=== PATIENT | male | born 1980 | race Caucasian/White ===

== ENCOUNTER 2017-12-15 09:52 | Day surgery (SDC) | payer OTHER ==
[~2017-12-15 09:52] MED LIST: Lidocaine 1% PF 2 ML SDV INJECT SCH
[2017-12-15] MEDS: Polymyxin B/Trimethoprim 10 ML Bottle EYERT SCH ×4 (10:48→12:37)
[2017-12-15] MEDS: Brimonidine 0.2% Ophth Soln 5 ML Bottle EYERT SCH ×4 (10:54→12:37)
[2017-12-15] MEDS: Phenylephrine 2.5% Ophth Soln 2 ML Bot EYERT SCH ×6 (10:59→12:24)
--- NOTE | 2017-12-15 11:19 | PCM.PREANE ---
Preanesthetic Assessment - Procedure Proposed Procedure: Right eye cataract extraction with implant - Anesthesia/Transfusion/Family Hx Anesthesia History: Prior Anesthesia Without Reaction Family History of Anesthesia Reaction: No Transfusion History: No Prior Transfusion(s) Intubation History: Unknown - Review of Systems General: No Symptoms Pulmonary: No Symptoms Cardiovascular: No Symptoms Gastrointestinal: No Symptoms Neurological: Seizure (took medicine today, last seisure 3 years ago ) Other: Reports: None - Physical Assessment NPO Status Date: 12/14/17 NPO Status Time: 23:00 O2 Sat by Pulse Oximetry: 96 Respiratory Rate: 16 Vital Signs: Last Vital Signs Temp 36.6 C 12/15/17 10:38 Pulse 68 12/15/17 10:38 Resp 16 12/15/17 10:38 BP 129/90 12/15/17 10:38 Pulse Ox 96 12/15/17 10:38 Height: 1.73 m Weight: 90.718 kg ASA Class: 2 Mental Status: Alert & Oriented x3 Airway Class: Mallampati = 1 Dentition: Reports: Normal Dentition Thyro-Mental Finger Breadths: 3 Mouth Opening Finger Breadths: 5 ROM/Head Extension: Full Lungs: Clear to Auscultation, Normal Respiratory Effort Cardiovascular: Regular Rate, Regular Rhythm - Allergies Allergies/Adverse Reactions: Allergies Allergy/AdvReac Type Severity Reaction Status Date / Time No Known Allergies Allergy Verified 12/13/17 16:35 - Blood Blood Available: No - Anesthesia Plan Pre-Op Medication Ordered: None - Acknowledgements Anesthesia Type Planned: MAC Pt an Appropriate Candidate for the Planned Anesthesia: Yes Alternatives and Risks of Anesthesia Discussed w Pt/Guardian: Yes Pt/Guardian Understands and Agrees with Anesthesia Plan: Yes PreAnesthesia Questionnaire - HOME MEDS Home Medications: Home Meds FLUoxetine HCl [Fluoxetine HCl] 40 mg PO DAILY 12/14/17 [History] Gabapentin [Neurontin] 900 mg PO BID 12/14/17 [History] Pantoprazole Sodium [Protonix] 40 mg PO DAILY 12/14/17 [History] carBAMazepine [carBAMazepine ER] 400 mg PO BID 12/14/17 [History] - CURRENT (IN HOUSE) MEDS Current Meds: Current Medications Brimonidine Tartrate (Alphagan 0.2% Ophth Soln) 0 ml EYERT ASDIRECTED [facility] Stop: 12/15/17 18:00 Last Admin: 12/15/17 10:54 Dose: 1 drop Cefuroxime Sodium (Zinacef) 0 mg EYERT ASDIRECTED [facility] Stop: 12/15/17 18:00 Lidocaine HCl (Xylocaine-Mpf 1%) 10 ml INJECT ASDIRECTED [facility] Stop: 12/15/17 18:00 Phenylephrine HCl (Nate-Synephrine 2.5% Ophth Soln) 0 ml EYERT ASDIRECTED [facility] Stop: 12/15/17 18:00 Last Admin: 12/15/17 11:08 Dose: 1 drop Pilocarpine HCl (Pilocar 4% Ophth Soln) 0 ml EYERT ASDIRECTED [facility] Stop: 12/15/17 18:00 Polymyxin/Trimethoprim Sulfate (Polytrim Ophth Soln) 0 ml EYERT ASDIRECTED [facility] Stop: 12/15/17 18:00 Last Admin: 12/15/17 10:48 Dose: 1 drop Tetracaine HCl (Tetracaine 0.5% Steri-Unit Kellen) 0 ml EYERT ASDIRECTED [facility] Stop: 12/15/17 18:00 Tropicamide (Mydriacyl 1% Ophth Soln) 0 ml EYERT ASDIRECTED [facility] Stop: 12/15/17 18:00 Last Admin: 12/15/17 11:13 Dose: 1 drop
[2017-12-15] MEDS: Tetracaine HCl/PF 0.5% 4 ML Bottle EYERT SCH ×2 (12:08→12:24)
[2017-12-15] MEDS: Cefuroxime 10 MG/ML SYRINGE EYERT SCH ×2 (12:24→12:36)
[2017-12-15] MEDS: Pilocarpine 4% Ophth Soln 15 ML Bot EYERT SCH ×2 (12:25→12:37)
--- NOTE | 2017-12-15 12:45 | PCM48HPAN ---
Post Anesthesia Note - EVALUATION WITHIN 48HRS OF ANESTHETIC Vital Signs in Normal Range: Yes Patient Participated in Evaluation: Yes Respiratory Function Stable: Yes Airway Patent: Yes Cardiovascular Function Stable: Yes Hydration Status Stable: Yes Pain Control Satisfactory: Yes Nausea and Vomiting Control Satisfactory: Yes Mental Status Recovered: Yes Pulse Rate: 68 SaO2: 96 Resp Rate: 16 Temperature: 36.6 C Blood Pressure: 109/82
== END 2017-12-15 12:50 | disposition home or self-care (01) ==
LOC: JD.SDS 09:52
PROVIDERS: ATTEND Ophthalmology
DX: H26.111 Localized traumatic opacities, right eye (principal); H40.051 Ocular hypertension, right eye; H40.002 Preglaucoma, unspecified, left eye; H02.831 Dermatochalasis of right upper eyelid; H02.834 Dermatochalasis of left upper eyelid; Z79.899 Other long term (current) drug therapy
CPT/HCPCS: 66984; J0697; A9270-GY; C1780; J2001